=== PATIENT | male | born 1955 | race Caucasian/White ===

== ENCOUNTER 2016-05-04 09:43 | Day surgery (SDC) | payer OTHER ==
[~2016-05-04 09:43] MED LIST: Lactated Ringers 1,000 ML IV SCH; Lidocaine 2% 5 ML SDV ONE; Midazolam 1 MG/ML 2 ML SDV ONE; Propofol 200 MG/20 ML SDV ONE; Water For Injection, Sterile 20 ML ONE; ePHEDrine 50 MG/ML SDV ONE; fentaNYL 100 MCG/2 ML SDV ONE
--- NOTE | 2016-05-04 10:40 | PCM.PREANE ---
Preanesthetic Assessment - ANESTHESIA/TRANSFUSION/FAMILY HX Anesthesia/Transfusion History: Prior Anesthesia Family History of Anesthesia Reaction: No Additional History: Required significant vasoactive support in prior case probably due to effects of antihypertensive drug regimen. - REVIEW OF SYSTEMS Constitutional: Reports: no symptoms VIDEO CONTROL OPERATOR: Reports: no symptoms Respiratory: Reports: no symptoms Cardiovascular: Reports: blood pressure problem GI: Reports: no symptoms Other: Reports: diabetes - PHYSICAL ASSESSMENT Height: 5 ft 8 in Weight: 240 lb ASA Class: 3 Mental Status: alert & oriented x3 Airway Class: Mallampati = 2 Dentition: Reports: normal dentition ROM/Head Extension: full Respiratory Status: lungs clear to auscultation bilaterally Cardiovascular Status: regular rate & rhythm, no murmur - ALLERGIES Allergies/Adverse Reactions: Allergies Allergy/AdvReac Type Severity Reaction Status Date / Time No Known Allergies Allergy Verified 04/16/16 10:17 - BLOOD Blood Available: No Product(s) Available: None - ANESTHESIA PLAN Preop Beta Raman: No Anesthesia Type Planned: MAC - ACKNOWLEDGEMENTS Pt an appropriate candidate for the planned anesthesia: Yes Alternatives and risks of anesthesia discussed w pt/guardian: Yes Pt/Guardian understands and agree with anesthesia plan: Yes PreAnesthesia Questionnaire - Past Health History Medical/Surgical History: Denies Medical/Surgical History HEENT History: Reports: Other (see below) Other HEENT History: wears glasses Gastrointestinal History: Reports: Colon polyp, Other (see below) Other Gastrointestinal History: occasional heartburn Endocrine/Metabolic History: Reports: Diabetes, type II, Obesity/BMI 30+ - Infectious Disease History Infectious Disease History: Reports: C-difficile, Measles, Mumps - Past Surgical History Head Surgeries/Procedures: Reports: None GI Surgical History: Reports: Cholecystectomy, Colonoscopy, EGD Neurological Surgical History: Reports: Lumbar spine Other Neurological Surgeries/Procedures: hx back surgery for herniated disc - SUBSTANCE USE Smoking Status *Q: Former Smoker Tobacco Use Within Last Twelve Months: Cigarettes Recreational Drug Use History: No - HOME MEDS Home Medications: Home Meds Lisinopril [Lisinopril] 10 mg PO DAILY 04/16/16 [History] metFORMIN HCl [Metformin HCl ER] 500 mg PO BID 04/16/16 [History] Empagliflozin/Linagliptin [Glyxambi 25 mg-5 mg Tablet] 1 tab PO DAILY 05/03/16 [ History] - CURRENT (IN HOUSE) MEDS Current Meds: Current Medications Lactated Ringer's (Ringers, Lactated) 1,000 mls @ 125 mls/hr IV ASDIRECTED GISELA Discontinued Medications Ephedrine Sulfate (Ephedrine Sulfate) Confirm Administered Dose 50 mg .ROUTE .STK-MED ONE Stop: 05/04/16 09:01 Fentanyl (Sublimaze) Confirm Administered Dose 100 mcg .ROUTE .STK-MED ONE Stop: 05/04/16 09:00 Sterile Water (Sterile Water For Injection) Confirm Administered Dose 20 mls @ as directed .ROUTE .STK-MED ONE Stop: 05/04/16 09:01 Lidocaine (Xylocaine-Mpf 2%) Confirm Administered Dose 5 ml .ROUTE .STK-MED ONE Stop: 05/04/16 08:59 Midazolam HCl (Versed 1 Mg/Ml) Confirm Administered Dose 2 mg .ROUTE .STK-MED ONE Stop: 05/04/16 09:00 Propofol (Diprivan 20 Ml) Confirm Administered Dose 400 mg .ROUTE .STK-MED ONE Stop: 05/04/16 09:00
[2016-05-04] MEDS ORDERED: Glycopyrrolate 0.2 MG/ML SDV ONE (10:52)
[2016-05-04] MEDS ORDERED: Propofol 200 MG/20 ML SDV ONE ×2 (11:04→11:21)
--- NOTE | 2016-05-04 11:35 | PCM.OPNOTE ---
- General Post-Op/Procedure Note Date of Surgery/Procedure: 05/04/16 Operative Procedure(s): Colonoscopy with cold ascending colon polypectomy x2, and transverse colon polypectomy x1 Pre Op Diagnosis: Personal history of colon polyps. Right-sided abdominal pain. Post-Op Diagnosis: Ascending colon polyp x2. Transverse colon polyp. Minimal. Sigmoid diverticulosis. Anesthesia Technique: MAC (ASA III) Primary Surgeon: Michael Taylor Heat Regulator: Maryellen Arora Condition: Good Free Text/Narrative:: Dictation [id number]
[2016-05-04] MEDS ORDERED: Lactated Ringers 1,000 ML IV SCH (11:45)
--- NOTE | 2016-05-04 11:57 | PCM.POSTAN ---
POST ANESTHESIA ASSESSMENT - MENTAL STATUS Mental Status: alert, oriented - RESPIRATORY Respiratory Status: respiratory rate WNL, airway patent, O2 saturation stable - CARDIOVASCULAR CV Status: pulse rate WNL, blood pressure stable - GASTROINTESTINAL GI Status: no symptoms - POST OP HYDRATION Hydration Status: adequate & stable
--- NOTE | 2016-05-04 11:57 | PCM48HPAN ---
Post Anesthesia Note - EVALUATION WITHIN 48HRS OF ANESTHETIC Vital Signs in Normal Range: Yes Patient Participated in Evaluation: Yes Respiratory Function Stable: Yes Airway Patent: Yes Cardiovascular Function Stable: Yes Hydration Status Stable: Yes Pain Control Satisfactory: Yes Nausea and Vomiting Control Satisfactory: Yes Mental Status Recovered: Yes
[2016-05-04 14:35] VITALS: BP 140/80
--- NOTE | 2016-05-04 15:25 | OR ---
SURGEON: Michael Taylor M.D. DATE OF PROCEDURE: 05/04/2016 OPERATION PERFORMED: Colonoscopy with cold ascending colon polypectomy x2 and cold transverse colon polypectomy. SENIOR CATERING SALES MANAGER: Dr. Arora. ANESTHESIA: MAC. ASA CLASSIFICATION: III. PREOPERATIVE DIAGNOSES: 1. Personal history of colon polyps. 2. Right-sided abdominal pain. POSTOPERATIVE DIAGNOSES: 1. Ascending colon polyp x2. 2. Transverse colon polyp. 3. Minimal sigmoid diverticulosis. DESCRIPTION OF PROCEDURE: The patient was taken to the endoscopy room and positioned on the endoscopy table in left lateral decubitus position. Time-out was called for appropriate identification of the patient and procedure. Monitored anesthesia care was provided. The colonoscope was inserted into the rectum and advanced without difficulty to the cecum where the colonoscope was retroflexed to visualize the ascending colon from below. The colonoscope was then straightened and slowly withdrawn. Two polyps were encountered in the ascending colon and removed with the cold biopsy forceps. They were within one fold of each other and were sent as one specimen. No inflammatory changes were noted in the cecum or ascending colon. The scope was slowly withdrawn carefully visualizing the hepatic flexure and transverse colon. Another polyp was encountered in the transverse colon and removed with the cold biopsy forceps. This was also sent for histologic analysis. The remainder of the transverse colon, splenic flexure, and descending colon showed no tumors, polyps, diverticula, or angiodysplasia. The sigmoid colon demonstrated a few scattered diverticula. No stricture, spasm, or bleeding was noted. No polyps were encountered in the sigmoid colon. The colonoscope was withdrawn to the rectum and retroflexed to visualize the anal orifice from above. Again, no tumors or polyps were seen and there were no acute hemorrhoidal changes. The colonoscope was then straightened, the rectum aspirated, and the colonoscope removed. The patient tolerated the procedure well and was taken to recovery room in satisfactory condition. TATIANA / JAIME /[id number]
== END 2016-05-04 12:45 | disposition home or self-care (01) ==
LOC: MW.SDS 09:43
PROVIDERS: ATTEND Surgery
PROC: 0DBK8ZX Excision of Ascending Colon, Via Natural or Artificial Opening Endoscopic, Diagnostic (ICD-10-PCS; principal; 2016-05-04)
PROC: 0DBL8ZX Excision of Transverse Colon, Via Natural or Artificial Opening Endoscopic, Diagnostic (ICD-10-PCS; 2016-05-04)
DX: D12.3 Benign neoplasm of transverse colon (principal); D12.2 Benign neoplasm of ascending colon; K57.30 Diverticulosis of large intestine without perforation or abscess without bleeding; G89.29 Other chronic pain; M54.5 Low back pain; M47.812 Spondylosis without myelopathy or radiculopathy, cervical region; M54.16 Radiculopathy, lumbar region; M79.1 Myalgia; Z79.899 Other long term (current) drug therapy; E11.9 Type 2 diabetes mellitus without complications; Z86.010 Personal history of colon polyps; Z87.891 Personal history of nicotine dependence
CPT/HCPCS: 45380; J2250; J3010; J7120; 00810; 88305; J2704

== ENCOUNTER 2018-09-26 09:52 | Day surgery (SDC) | payer OTHER ==
[~2018-09-26 09:52] MED LIST changes: -Lidocaine 2% 5 ML SDV ONE; -Midazolam 1 MG/ML 2 ML SDV ONE; -Propofol 200 MG/20 ML SDV ONE; -Water For Injection, Sterile 20 ML ONE; -ePHEDrine 50 MG/ML SDV ONE; -fentaNYL 100 MCG/2 ML SDV ONE
--- NOTE | 2018-09-26 10:43 | PCM.PREANE ---
Preanesthetic Assessment - Anesthesia/Transfusion/Family Hx Anesthesia History: Prior Anesthesia Without Reaction Type of Anesthesia Reaction: Other (see below) (needed glide scope for intubation for back surgery) Family History of Anesthesia Reaction: No Transfusion History: No Prior Transfusion(s) Intubation History: Unknown - Review of Systems General: No Symptoms Pulmonary: No Symptoms Cardiovascular: No Symptoms Gastrointestinal: Abdominal Pain, Other (adenomatous polyp 2 years ago (per colonoscopy)) Neurological: No Symptoms Other: Reports: None - Physical Assessment Height: 5 ft 8 in Weight: 112.037 kg ASA Class: 2 Mental Status: Alert & Oriented x3 Airway Class: Mallampati = 3 Dentition: Reports: Normal Dentition, [place](s) (multiple upper front) Thyro-Mental Finger Breadths: 3 Mouth Opening Finger Breadths: 3 ROM/Head Extension: Full Lungs: Clear to Auscultation, Normal Respiratory Effort Cardiovascular: Regular Rate, Regular Rhythm - Allergies Allergies/Adverse Reactions: Allergies Allergy/AdvReac Type Severity Reaction Status Date / Time No Known Allergies Allergy Verified 09/18/18 15:00 - Blood Blood Available: No - Anesthesia Plan Pre-Op Medication Ordered: None - Acknowledgements Anesthesia Type Planned: MAC Pt an Appropriate Candidate for the Planned Anesthesia: Yes Alternatives and Risks of Anesthesia Discussed w Pt/Guardian: Yes Pt/Guardian Understands and Agrees with Anesthesia Plan: Yes PreAnesthesia Questionnaire - Past Health History Medical/Surgical History: Denies Medical/Surgical History HEENT History: Reports: Other (See Below) Other HEENT History: uses reading glasses, has 4 upper caps, right lower dental implant post , fractured 2nd upper left molar Gastrointestinal History: Reports: Colon Polyp, Hiatal Hernia Other Gastrointestinal History: states "probable" hiatial hernia, occasional Gerd-takes OTC meds Musculoskeletal History: Reports: Back Pain, Chronic, Neck Pain, Chronic, Other (See Below) Other Musculoskeletal History: spinal stenosis Neurological History: Reports: Other (See Below) Other Neuro History: degenerative disc disease Endocrine/Metabolic History: Reports: Diabetes, Type II, IDDM, Obesity/BMI 30+ - Infectious Disease History Infectious Disease History: Reports: C-Difficile, Measles, Mumps - Past Surgical History GI Surgical History: Reports: Cholecystectomy, Colonoscopy (2 years ago), EGD Neurological Surgical History: Reports: Discectomy (lumbar microdiscectomy), Lumbar Spine - SUBSTANCE USE Smoking Status *Q: Current Every Day Smoker Tobacco Use Within Last Twelve Months: Cigarettes Recreational Drug Use History: No - HOME MEDS Home Medications: Home Meds Lisinopril 10 mg PO BEDTIME 04/16/16 [History] metFORMIN HCl [Metformin HCl ER] 500 mg PO BID 04/16/16 [History] Insulin Aspart [NovoLOG] 0 unit SQ TID 09/18/18 [History] Insulin Glargine,Hum.Rec.Anlog [Lantus Solostar] 40 units SQ BEDTIME 09/18/18 [ History] Tadalafil [Cialis] 20 mg PO ASDIRECTED PRN 09/18/18 [History] - CURRENT (IN HOUSE) MEDS Current Meds: Current Medications Lactated Ringer's (Ringers, Lactated) 1,000 mls @ 125 mls/hr IV ASDIRECTED GISELA
[2018-09-26] MEDS ORDERED: Propofol 200 MG/20 ML SDV ONE ×2 (11:06→11:34)
[2018-09-26] MEDS ORDERED: Glycopyrrolate 0.2 MG/ML SDV ONE (11:06)
[2018-09-26] MEDS ORDERED: Lidocaine 2% 5 ML SDV ONE (11:06)
[2018-09-26] MEDS ORDERED: Midazolam 1 MG/ML 2 ML SDV ONE (11:06)
[2018-09-26] MEDS ORDERED: Phenylephrine/Normal Saline 100 MCG/ML 10 ML Syringe ONE (11:12)
--- NOTE | 2018-09-26 12:18 | PCM.OPNOTE ---
- General Post-Op/Procedure Note Date of Surgery/Procedure: 09/26/18 Operative Procedure(s): Colonoscopy with cold transverse colon, sigmoid and proximal rectal polypectomies Pre Op Diagnosis: Personal history of colon polyps Post-Op Diagnosis: Transverse colon, sigmoid and proximal rectal polyps Anesthesia Technique: MAC (ASA II) Primary Surgeon: Michael Taylor Condition: Good Free Text/Narrative:: DICTATION [id number] CPT CODE 80852
[2018-09-26] MEDS ORDERED: Lactated Ringers 1,000 ML IV SCH (12:30)
[2018-09-26 13:21] VITALS: BP 139/73
--- NOTE | 2018-09-26 15:03 | OR ---
SURGEON: Michael Taylor M.D. DATE OF PROCEDURE: 09/26/2018 OPERATION PERFORMED: Colonoscopy with cold transverse colon, sigmoid colon, and rectal polypectomies. PRIMARY SURGEON: Michael Taylor MD. ANESTHESIA: MAC. ASA CLASSIFICATION: II. PREOPERATIVE DIAGNOSIS: Personal history of colon polyps. POSTOPERATIVE DIAGNOSIS: Transverse colon polyp, sigmoid polyp, proximal rectal polyp. DESCRIPTION OF PROCEDURE: The patient was taken to the endoscopy room and positioned on the endoscopy table in the left lateral decubitus position. Time-out was called for appropriate identification of the patient and procedure. Monitored anesthesia care was provided. The colonoscope was inserted into the rectum and advanced with minimal difficulty to the cecum where the colonoscope was retroflexed to visualize the ascending colon from below. The colonoscope was then straightened and slowly withdrawn. The cecum, ascending colon, hepatic flexure, and proximal transverse colon showed no tumors, polyps, diverticula, or angiodysplastic changes. One polyp was encountered in the transverse colon and removed with cold biopsy forceps. The remainder of the transverse colon, splenic flexure, and descending colon showed no tumors or polyps. The colonoscope was withdrawn to the sigmoid colon where a second polyp was encountered and again removed with the cold biopsy forceps. At approximately 25 cm, that being the proximal rectum, a third polyp was encountered and also removed with the cold biopsy forceps. Once the colonoscope was withdrawn to the rectum, it was retroflexed to visualize the anal orifice from above. No tumors or polyps were seen and no acute hemorrhoidal changes were noted. The colonoscope was then straightened, the rectum aspirated, and the colonoscope removed. The patient tolerated the procedure well and was taken to recovery room in stable condition. TATIANA / JAIME /[id number]
== END 2018-09-26 13:15 | disposition home or self-care (01) ==
LOC: MW.SDS 09:52
PROVIDERS: ATTEND Surgery
DX: D12.3 Benign neoplasm of transverse colon (principal); D12.5 Benign neoplasm of sigmoid colon; D12.8 Benign neoplasm of rectum; E11.9 Type 2 diabetes mellitus without complications; E66.9 Obesity, unspecified; G89.29 Other chronic pain; M54.5 Low back pain; M47.892 Other spondylosis, cervical region; Z68.37 Body mass index [BMI] 37.0-37.9, adult; Z86.010 Personal history of colon polyps; Z87.891 Personal history of nicotine dependence; Z79.4 Long term (current) use of insulin; Z79.899 Other long term (current) drug therapy
CPT/HCPCS: 45380; 82962; J2001; J2250; J2704; J3490; J7120; J2370

== ENCOUNTER 2021-05-23 21:29 | Observation (INO) | payer MEDICARE, OTHER ==
[2021-05-23] MEDS ORDERED: Aspirin 81 MG Tab.Chew PO ONE (21:53)
[2021-05-23 23:04] LABS: BLOOD UREA NITROGEN,BUN 19 mg/dL (7.0-18.0); CARBON DIOXIDE,CO2 23.1 mmol/L (21.0-32.0); CHLORIDE,CL 101 mmol/L (98-107); GLUCOSE RANDOM 233 mg/dL (74-106); SODIUM,NA 137 mmol/L (136-148)
[2021-05-24] MEDS ORDERED: Glucagon,Human Recombinant 1 MG Vial IM PRN (07:37)
[2021-05-24] MEDS ORDERED: 50% Dextrose in Water 50 ML Syringe IVPUSH PRN (07:37)
[2021-05-24] MEDS ORDERED: Albuterol/Ipratropium 3.0-0.5 MG/3 ML Neb Soln NEB PRN (07:38)
[2021-05-24 07:56] LABS: BLOOD UREA NITROGEN,BUN 17 mg/dL (7.0-18.0); CARBON DIOXIDE,CO2 21.8 mmol/L (21.0-32.0); CHLORIDE,CL 103 mmol/L (98-107); GLUCOSE RANDOM 192 mg/dL (74-106); POTASSIUM,K 4.6 mmol/L (3.5-5.1); SODIUM,NA 140 mmol/L (136-148)
[2021-05-24] MEDS ORDERED: Insulin Glargine,Human Rec. Analog 100 Units/ML 3 ML Pen SUBCUT SCH ×2 (09:00→21:00)
[2021-05-24] MEDS: Insulin Aspart 100 Units/ML 3 ML Pen SUBCUT SCH ×3 (09:07→17:35)
[2021-05-24] MEDS: Pantoprazole 40 MG in Sodium Chloride 0.9% 10 ML IVPUSH SCH ×2 (09:12→20:41)
[2021-05-24] MEDS: Sucralfate Suspension 1 GM/10 ML Cup PO SCH (17:34)
[2021-05-24] MEDS ORDERED: Lisinopril 10 MG Tab PO SCH (21:00)
[2021-05-25 06:19] LABS: BLOOD UREA NITROGEN,BUN 15 mg/dL (7.0-18.0); CARBON DIOXIDE,CO2 24.4 mmol/L (21.0-32.0); CHLORIDE,CL 103 mmol/L (98-107); GLUCOSE RANDOM 163 mg/dL (74-106); SODIUM,NA 140 mmol/L (136-148)
[2021-05-25] MEDS: Sucralfate Suspension 1 GM/10 ML Cup PO SCH ×2 (07:55→11:17)
[2021-05-25] MEDS: Pantoprazole 40 MG in Sodium Chloride 0.9% 10 ML IVPUSH SCH (07:55)
[2021-05-25] MEDS: Insulin Aspart 100 Units/ML 3 ML Pen SUBCUT SCH ×2 (07:56→11:40)
[2021-05-25 09:28] VITALS: BP 141/66; PULSE 89
== END 2021-05-25 11:55 | disposition home or self-care (01) ==
LOC: MW.ED 21:29 → MW.MS 05-24 00:08
PROVIDERS: ADMIT Student in an Organized Health Care Education/Training Program; ATTEND Student in an Organized Health Care Education/Training Program
DX: R07.89 Other chest pain (principal); R06.00 Dyspnea, unspecified; K92.2 Gastrointestinal hemorrhage, unspecified; T39.395A Adverse effect of other nonsteroidal anti-inflammatory drugs [NSAID], initial encounter; F17.210 Nicotine dependence, cigarettes, uncomplicated; E11.9 Type 2 diabetes mellitus without complications; E66.9 Obesity, unspecified; D64.9 Anemia, unspecified; I10 Essential (primary) hypertension; Z68.30 Body mass index [BMI] 30.0-30.9, adult; Z98.890 Other specified postprocedural states; Z90.49 Acquired absence of other specified parts of digestive tract; Z79.4 Long term (current) use of insulin; Z79.84 Long term (current) use of oral hypoglycemic drugs; Z79.899 Other long term (current) drug therapy; Z20.822 Contact with and (suspected) exposure to COVID-19
CPT/HCPCS: 36415; 36430; 71045; 80048; 80053; 82272; 82947; 83540; 83735; 84484; 85014; 85018; 85025; 86850; 86900; 86901; 86920; 87338; 93005; 96374; 96375; 96376; 99285; A9270; C9113; G0378; J1815; P9016; Q0138; U0002

== ENCOUNTER 2021-06-09 07:09 | Day surgery (SDC) | payer MEDICARE, OTHER ==
[2021-06-09] MEDS ORDERED: fentaNYL 100 MCG/2 ML SDV ONE (07:14)
[2021-06-09] MEDS ORDERED: Propofol 200 MG/20 ML SDV ONE ×3 (07:14→09:47)
[2021-06-09] MEDS ORDERED: Midazolam 1 MG/ML 2 ML SDV ONE (07:14)
[2021-06-09] MEDS ORDERED: Lidocaine 1% 5 ML VIAL ONE (08:52)
[2021-06-09] MEDS ORDERED: Lactated Ringers 1,000 ML IV SCH (10:15)
[2021-06-09 13:10] VITALS: BP 141/78; PULSE 84
== END 2021-06-09 11:15 | disposition home or self-care (01) ==
LOC: MW.SDS 07:09
PROVIDERS: ATTEND Surgery
DX: D12.0 Benign neoplasm of cecum (principal); D50.0 Iron deficiency anemia secondary to blood loss (chronic); K29.70 Gastritis, unspecified, without bleeding; K21.00 Gastro-esophageal reflux disease with esophagitis, without bleeding; E66.9 Obesity, unspecified; E11.9 Type 2 diabetes mellitus without complications; E78.00 Pure hypercholesterolemia, unspecified; F17.210 Nicotine dependence, cigarettes, uncomplicated; Z98.890 Other specified postprocedural states; Z90.49 Acquired absence of other specified parts of digestive tract; Z90.89 Acquired absence of other organs; Z79.4 Long term (current) use of insulin; Z79.84 Long term (current) use of oral hypoglycemic drugs; Z79.899 Other long term (current) drug therapy
CPT/HCPCS: 43239; 45380; 82947; J2250; J2704; J3010; J7120; 00813; 88305; 88341; 88342

== ENCOUNTER 2021-09-15 06:40 | Day surgery (SDC) | payer MEDICARE, OTHER ==
[~2021-09-15 06:40] MED LIST changes: +ceFAZolin 2 GM in Premix Bag 1 BAG IV ONE
[2021-09-15] MEDS ORDERED: Dexmedetomidine 200 MCG/2 ML SDV ONE (07:27)
[2021-09-15] MEDS ORDERED: Bupivacaine 0.5% 10 ML SDV ONE (07:27)
[2021-09-15] MEDS ORDERED: Lidocaine 1% 20 ML MDV ONE (07:28)
[2021-09-15] MEDS ORDERED: Propofol 200 MG/20 ML SDV ONE (07:28)
[2021-09-15] MEDS ORDERED: Water For Injection, Sterile 20 ML ONE (07:28)
[2021-09-15] MEDS ORDERED: Lidocaine 2% 5 ML SDV ONE (07:28)
[2021-09-15] MEDS ORDERED: fentaNYL 100 MCG/2 ML SDV ONE (07:28)
[2021-09-15] MEDS ORDERED: Heparin Sodium 100 Units/ML 3 ML Syringe ONE (07:28)
[2021-09-15] MEDS ORDERED: fentaNYL 50 MCG/ML SDV IVPUSH PRN (08:23)
[2021-09-15] MEDS ORDERED: Ondansetron 4 MG/2 ML SDV IVPUSH PRN (08:23)
[2021-09-15] MEDS ORDERED: HYDROmorphone 1 MG/ML Syringe IVPUSH PRN (08:23)
[2021-09-15] MEDS ORDERED: Morphine 2 MG/ML SYRINGE IVPUSH PRN (08:23)
[2021-09-15] MEDS ORDERED: Metoclopramide 10 MG/2 ML SDV IVPUSH PRN (08:23)
[2021-09-15] MEDS ORDERED: Naloxone 0.4 MG/ML SDV IVPUSH PRN (08:23)
[2021-09-15] MEDS ORDERED: Albuterol 0.083% 2.5 MG/3 ML Neb Soln NEB PRN (08:23)
[2021-09-15] MEDS ORDERED: Ketorolac 30 MG/ML SDV ONE (08:26)
[2021-09-15] MEDS ORDERED: ePHEDrine 50 MG/ML SDV ONE (08:50)
[2021-09-15 14:12] VITALS: BP 110/61; PULSE 66
== END 2021-09-15 11:18 | disposition home or self-care (01) ==
LOC: MW.SDS 06:40
PROVIDERS: ATTEND Surgery
DX: C18.2 Malignant neoplasm of ascending colon (principal); E66.9 Obesity, unspecified; E11.9 Type 2 diabetes mellitus without complications; D12.8 Benign neoplasm of rectum; E78.00 Pure hypercholesterolemia, unspecified; Z79.84 Long term (current) use of oral hypoglycemic drugs; Z79.4 Long term (current) use of insulin; Z98.890 Other specified postprocedural states; Z87.891 Personal history of nicotine dependence; Z90.49 Acquired absence of other specified parts of digestive tract; Z68.36 Body mass index [BMI] 36.0-36.9, adult
CPT/HCPCS: 36571; 71045; 76000; 82947; C1788; J0131; J1642; J1885; J2370; J2704; J3010; J3490; J7120; 00532; 36561

== ENCOUNTER 2024-09-16 20:54 | Inpatient (IN) | payer MEDICARE, OTHER ==
[2024-09-16 21:17] LABS: BASOPHILS ABSOLUTE AUTO 0.06 K/uL (0.00-0.20); BASOPHILS PERCENT AUTO 0.7 % (0.0-1.0); EOSINOPHILS ABSOLUTE AUTO 0.10 K/uL (0.00-0.45); EOSINOPHILS PERCENT AUTO 1.2 % (0.0-6.0); IMMATURE GRAN ABSOLUTE AUTO 0.03 K/uL (0.00-0.05); IMMATURE GRAN PERCENT AUTO 0.4 % (0.0-0.4); LYMPHOCYTES ABSOLUTE AUTO 0.88 K/uL (1.00-4.80); LYMPHOCYTES PERCENT AUTO 10.8 % (24.0-44.0); MEAN PLATELET VOLUME 9.7 fL (9.4-12.4); MONOCYTES ABSOLUTE AUTO 0.91 K/uL (0.00-0.80); MONOCYTES PERCENT AUTO 11.1 % (0.0-8.0); NEUTROPHILS ABSOLUTE AUTO 6.19 K/uL (1.80-7.70); NEUTROPHILS PERCENT AUTO 75.8 % (41.0-71.0); NRBC ABSOLUTE 0.00 K/uL (0.00-0.02); NRBC PERCENT 0.0 /100WBC (0.0-0.2); PLATELET COUNT,PLT 213 K/uL (150-400); RED BLOOD CELL COUNT 3.10 M/uL (4.52-5.90); WHITE BLOOD CELL COUNT,WBC 8.17 K/uL (3.9-11.3)
[2024-09-16 21:20] LABS: PCO2 VENOUS 26.0 mmHG (41-51); PH,VENOUS 7.54 (7.32-7.43); PO2 VENOUS 36.0 mmHG (35-45)
[2024-09-16 21:21] LABS: BASE EXCESS VENOUS 0.5 (-2.0-3.0); BICARBONATE,VENOUS 22.0 mEq/L (22-29)
[2024-09-16 21:32] LABS: INR 1.18 (0.86-1.11)
[2024-09-16] MEDS: Lactulose Soln 10 GM/15 ML 15 ML UD Cup PO ONE (21:46)
[2024-09-16 21:50] LABS: A/G RATIO 1.1 (0.9-1.6); ALANINE AMINOTRANSFERASE,ALT 36 IU/L (14-63); ASPARTATE AMNIOTRANSFERASE,AST 80 IU/L (15-37); BILIRUBIN TOTAL 1.9 mg/dL (0.2-1.0); BLOOD UREA NITROGEN,BUN 47 mg/dL (7.0-18.0); CARBON DIOXIDE,CO2 22.1 mmol/L (21.0-32.0); CHLORIDE,CL 99 mmol/L (98-107); CREATININE 2.7 mg/dL (0.8-1.3); GLUCOSE RANDOM 129 mg/dL (74-106); POTASSIUM,K 4.1 mmol/L (3.5-5.1); PRO B-TYPE NATRIUR PEPT,BNPPRO 731 pg/mL (0-125); PROTEIN TOTAL,TP 5.3 g/dL (6.4-8.2); SODIUM,NA 133 mmol/L (136-148)
[2024-09-16 21:51] LABS: ESTIMATED GFR 25 mL/min (>60)
[2024-09-16 23:54] LABS: APPEARANCE,URINE CLEAR; GLUCOSE,URINE NEGATIVE (NEGATIVE); OCCULT BLOOD,URINE NEGATIVE (NEGATIVE)
[2024-09-17] MEDS ORDERED: 50% Dextrose in Water 50 ML Syringe IVPUSH PRN (00:21)
[2024-09-17 05:38] LABS: BASOPHILS ABSOLUTE AUTO 0.06 K/uL (0.00-0.20); BASOPHILS PERCENT AUTO 1.2 % (0.0-1.0); EOSINOPHILS ABSOLUTE AUTO 0.12 K/uL (0.00-0.45); EOSINOPHILS PERCENT AUTO 2.3 % (0.0-6.0); IMMATURE GRAN ABSOLUTE AUTO 0.02 K/uL (0.00-0.05); IMMATURE GRAN PERCENT AUTO 0.4 % (0.0-0.4); LYMPHOCYTES ABSOLUTE AUTO 0.62 K/uL (1.00-4.80); LYMPHOCYTES PERCENT AUTO 12.1 % (24.0-44.0); MEAN PLATELET VOLUME 9.1 fL (9.4-12.4); MONOCYTES ABSOLUTE AUTO 0.67 K/uL (0.00-0.80); MONOCYTES PERCENT AUTO 13.0 % (0.0-8.0); NEUTROPHILS ABSOLUTE AUTO 3.65 K/uL (1.80-7.70); NEUTROPHILS PERCENT AUTO 71.0 % (41.0-71.0); NRBC ABSOLUTE 0.00 K/uL (0.00-0.02); NRBC PERCENT 0.0 /100WBC (0.0-0.2); PLATELET COUNT,PLT 173 K/uL (150-400); RED BLOOD CELL COUNT 2.71 M/uL (4.52-5.90); WHITE BLOOD CELL COUNT,WBC 5.14 K/uL (3.9-11.3)
[2024-09-17 06:00] LABS: ALANINE AMINOTRANSFERASE,ALT 28.0 IU/L (14-63); ASPARTATE AMNIOTRANSFERASE,AST 68.0 IU/L (15-37); BILIRUBIN TOTAL 1.8 mg/dL (0.2-1.0); BLOOD UREA NITROGEN,BUN 42.0 mg/dL (7.0-18.0); CARBON DIOXIDE,CO2 23.0 mmol/L (21.0-32.0); CHLORIDE,CL 103.0 mmol/L (98-107); CREATININE 2.3 mg/dL (0.8-1.3); EST CRCL DRUG DOSING (CG) 27.94 mL/min; GLUCOSE RANDOM 88.0 mg/dL (74-106); POTASSIUM,K 3.7 mmol/L (3.5-5.1); PROTEIN TOTAL,TP 4.1 g/dL (6.4-8.2); SODIUM,NA 135.0 mmol/L (136-148)
[2024-09-17 06:01] LABS: A/G RATIO 1.1 (0.9-1.6); ESTIMATED GFR 30.0 mL/min (>60)
[2024-09-17] MEDS: Lactulose Soln 10 GM/15 ML 15 ML UD Cup PO SCH (09:19)
[2024-09-17] MEDS: Lactulose Soln 10 GM/15 ML 15 ML UD Cup PO ONE (12:04)
[2024-09-17] MEDS: Furosemide 20 MG/2 ML VIAL IVPUSH ONE (15:00)
[2024-09-17 17:38] LABS: A/G RATIO 1.0 (0.9-1.6); ALANINE AMINOTRANSFERASE,ALT 37.0 IU/L (14-63); ASPARTATE AMNIOTRANSFERASE,AST 90.0 IU/L (15-37); BILIRUBIN TOTAL 1.1 mg/dL (0.2-1.0); BLOOD UREA NITROGEN,BUN 42.0 mg/dL (7.0-18.0); CARBON DIOXIDE,CO2 25.0 mmol/L (21.0-32.0); CHLORIDE,CL 100.0 mmol/L (98-107); CREATININE 2.4 mg/dL (0.8-1.3); EST CRCL DRUG DOSING (CG) 26.78 mL/min; ESTIMATED GFR 28.0 mL/min (>60); GLUCOSE RANDOM 149.0 mg/dL (74-106); POTASSIUM,K 4.3 mmol/L (3.5-5.1); PROTEIN TOTAL,TP 4.9 g/dL (6.4-8.2); SODIUM,NA 133.0 mmol/L (136-148)
[2024-09-18 06:15] LABS: BASOPHILS ABSOLUTE AUTO 0.07 K/uL (0.00-0.20); BASOPHILS PERCENT AUTO 1.2 % (0.0-1.0); EOSINOPHILS ABSOLUTE AUTO 0.22 K/uL (0.00-0.45); EOSINOPHILS PERCENT AUTO 3.6 % (0.0-6.0); IMMATURE GRAN ABSOLUTE AUTO 0.02 K/uL (0.00-0.05); IMMATURE GRAN PERCENT AUTO 0.3 % (0.0-0.4); LYMPHOCYTES ABSOLUTE AUTO 0.68 K/uL (1.00-4.80); LYMPHOCYTES PERCENT AUTO 11.2 % (24.0-44.0); MEAN PLATELET VOLUME 9.5 fL (9.4-12.4); MONOCYTES ABSOLUTE AUTO 1.00 K/uL (0.00-0.80); MONOCYTES PERCENT AUTO 16.5 % (0.0-8.0); NEUTROPHILS ABSOLUTE AUTO 4.08 K/uL (1.80-7.70); NEUTROPHILS PERCENT AUTO 67.2 % (41.0-71.0); NRBC ABSOLUTE 0.00 K/uL (0.00-0.02); NRBC PERCENT 0.0 /100WBC (0.0-0.2); PLATELET COUNT,PLT 168 K/uL (150-400); RED BLOOD CELL COUNT 2.51 M/uL (4.52-5.90); WHITE BLOOD CELL COUNT,WBC 6.07 K/uL (3.9-11.3)
[2024-09-18 06:37] LABS: BLOOD UREA NITROGEN,BUN 41.0 mg/dL (7.0-18.0); CARBON DIOXIDE,CO2 22.4 mmol/L (21.0-32.0); CHLORIDE,CL 101.0 mmol/L (98-107); CREATININE 2.0 mg/dL (0.8-1.3); EST CRCL DRUG DOSING (CG) 32.13 mL/min; GLUCOSE RANDOM 108.0 mg/dL (74-106); POTASSIUM,K 3.7 mmol/L (3.5-5.1); SODIUM,NA 132.0 mmol/L (136-148)
[2024-09-18 06:41] LABS: ESTIMATED GFR 35.0 mL/min (>60)
[2024-09-18] MEDS: Albumin 25% 25 GM in Premix Bag 1 BAG IV ONE (11:57)
[2024-09-18 15:38] VITALS: BP 114/57; PULSE 86
== END 2024-09-18 16:50 | disposition home or self-care (01) | DRG 441 ==
LOC: MW.ED 20:54 → MW.MS 22:34
PROVIDERS: ADMIT Family Medicine; ATTEND Family Medicine
PROC: 0W9G3ZZ Drainage of Peritoneal Cavity, Percutaneous Approach (ICD-10-PCS; principal; 2024-09-18)
DX: R41.82 Altered mental status, unspecified (principal); K76.82 Hepatic encephalopathy; K76.7 Hepatorenal syndrome; N17.9 Acute kidney failure, unspecified; R60.0 Localized edema; D64.9 Anemia, unspecified; G93.39 Other post infection and related fatigue syndromes; R79.89 Other specified abnormal findings of blood chemistry; E72.20 Disorder of urea cycle metabolism, unspecified; Z66 Do not resuscitate; Z92.89 Personal history of other medical treatment; E78.00 Pure hypercholesterolemia, unspecified; E11.9 Type 2 diabetes mellitus without complications; K21.9 Gastro-esophageal reflux disease without esophagitis; M19.90 Unspecified osteoarthritis, unspecified site; E66.9 Obesity, unspecified; N18.9 Chronic kidney disease, unspecified; E11.22 Type 2 diabetes mellitus with diabetic chronic kidney disease; D63.1 Anemia in chronic kidney disease; Z85.038 Personal history of other malignant neoplasm of large intestine; Z98.890 Other specified postprocedural states; Z79.84 Long term (current) use of oral hypoglycemic drugs; Z79.4 Long term (current) use of insulin; Z79.899 Other long term (current) drug therapy; Z86.0100 Personal history of colon polyps, unspecified; Z68.34 Body mass index [BMI] 34.0-34.9, adult; Z90.89 Acquired absence of other organs; Z90.49 Acquired absence of other specified parts of digestive tract; Z92.21 Personal history of antineoplastic chemotherapy
CPT/HCPCS: 36415; 70450; 80053; 82140; 82803; 82947; 83605; 83690; 83735; 83880; 84484; 85025; 85610; 87040 ×2; 93005; 99285; A9270; J7030; 49083; 80048; 81003; 93010; 97161-GP; J1642; J1815-GY; J1938; J7040; P9047

== ENCOUNTER 2024-09-25 13:35 | Emergency (ER) | payer MEDICARE, OTHER ==
[2024-09-25] MEDS ORDERED: Sodium Chloride 0.9% 2.5 ML Syringe FLUSH PRN (13:58)
[2024-09-25] MEDS ORDERED: Sodium Chloride 0.9% 10 ML Syringe FLUSH PRN (13:58)
[2024-09-25] MEDS: droPERidol 2.5 MG/ML SDV IVPUSH ONE ×3 (13:59→19:30)
[2024-09-25 14:04] LABS: BASOPHILS ABSOLUTE AUTO 0.05 K/uL (0.00-0.20); BASOPHILS PERCENT AUTO 0.5 % (0.0-1.0); EOSINOPHILS ABSOLUTE AUTO 0.02 K/uL (0.00-0.45); EOSINOPHILS PERCENT AUTO 0.2 % (0.0-6.0); IMMATURE GRAN ABSOLUTE AUTO 0.06 K/uL (0.00-0.05); IMMATURE GRAN PERCENT AUTO 0.6 % (0.0-0.4); LYMPHOCYTES ABSOLUTE AUTO 0.67 K/uL (1.00-4.80); LYMPHOCYTES PERCENT AUTO 6.8 % (24.0-44.0); MEAN PLATELET VOLUME 9.5 fL (9.4-12.4); MONOCYTES ABSOLUTE AUTO 0.74 K/uL (0.00-0.80); MONOCYTES PERCENT AUTO 7.5 % (0.0-8.0); NEUTROPHILS ABSOLUTE AUTO 8.27 K/uL (1.80-7.70); NEUTROPHILS PERCENT AUTO 84.4 % (41.0-71.0); NRBC ABSOLUTE 0.00 K/uL (0.00-0.02); NRBC PERCENT 0.0 /100WBC (0.0-0.2); PLATELET COUNT,PLT 248 K/uL (150-400); RED BLOOD CELL COUNT 3.16 M/uL (4.52-5.90); WHITE BLOOD CELL COUNT,WBC 9.81 K/uL (3.9-11.3)
[2024-09-25 14:09] LABS: PH,VENOUS 7.41 (7.32-7.43)
[2024-09-25 14:10] LABS: BASE EXCESS VENOUS -7.4 (-2.0-3.0); BICARBONATE,VENOUS 16.0 mEq/L (22-29); PCO2 VENOUS 25.0 mmHG (41-51); PO2 VENOUS 80.0 mmHG (35-45)
[2024-09-25 14:18] LABS: INR 1.22 (0.86-1.11); PTT,PARTIAL THROMBOPLSTIN TIME 73.2 SEC (23.9-30.7)
[2024-09-25 14:44] LABS: A/G RATIO 1.2 (0.9-1.6); ALANINE AMINOTRANSFERASE,ALT 39 IU/L (14-63); ASPARTATE AMNIOTRANSFERASE,AST 48 IU/L (15-37); BILIRUBIN TOTAL 1.2 mg/dL (0.2-1.0); BLOOD UREA NITROGEN,BUN 48 mg/dL (7.0-18.0); CARBON DIOXIDE,CO2 16.9 mmol/L (21.0-32.0); CHLORIDE,CL 101 mmol/L (98-107); CREATINE KINASE,CK 83 U/L (26-308); CREATININE 2.6 mg/dL (0.8-1.3); ETHANOL BLOOD MEDICAL <3 mg/dL; GLUCOSE RANDOM 170 mg/dL (74-106); POTASSIUM,K 4.8 mmol/L (3.5-5.1); PROTEIN TOTAL,TP 5.0 g/dL (6.4-8.2); SODIUM,NA 132 mmol/L (136-148)
[2024-09-25 14:45] LABS: LACTIC ACID 5.6 mmol/L (0.4-2.0)
[2024-09-25 14:46] LABS: ESTIMATED GFR 26 mL/min (>60)
[2024-09-25] MEDS: Lactulose Soln 10 GM/15 ML 15 ML UD Cup ONE (16:24)
[2024-09-25 17:05] LABS: APPEARANCE,URINE CLEAR; GLUCOSE,URINE NEGATIVE (NEGATIVE); OCCULT BLOOD,URINE NEGATIVE (NEGATIVE)
[2024-09-25] MEDS: STERILE IVPUSH ONE (17:43)
[2024-09-25] MEDS: AZTREONAM IVPUSH ONE (17:43)
[2024-09-25] MEDS: WATER FOR INJECTION IVPUSH ONE (17:43)
[2024-09-25 18:47] VITALS: BP 151/81; PULSE 120
[2024-09-25] MEDS ORDERED: droPERidol 2.5 MG/ML SDV ONE (19:29)
== END 2024-09-25 20:10 ==
LOC: MW.ED 13:35
DX: K76.82 Hepatic encephalopathy (principal); N28.9 Disorder of kidney and ureter, unspecified; K74.60 Unspecified cirrhosis of liver; R18.8 Other ascites; E87.20 Acidosis, unspecified; E72.20 Disorder of urea cycle metabolism, unspecified; E78.00 Pure hypercholesterolemia, unspecified; K21.9 Gastro-esophageal reflux disease without esophagitis; E11.9 Type 2 diabetes mellitus without complications; E66.9 Obesity, unspecified; Z79.899 Other long term (current) drug therapy; Z79.84 Long term (current) use of oral hypoglycemic drugs
CPT/HCPCS: 36415; 49083; 51702; 70450; 71045; 71250; 72125; 74176; 80053; 80307; 81003; 82140; 82550; 82803; 83605; 83690; 83735; 84484; 85025; 85610; 85730; 87040; 93005; 96361; 96374; 96375; 96376; 99285; A9270; J0457; J1790; J7040; 99284